=== PATIENT | female | born 1950 | race Caucasian/White ===

== ENCOUNTER 2016-07-30 09:30 | Emergency (ER) | payer BC ==
--- NOTE | 2016-07-30 10:40 | UC ---
Lower Extremity/Ankle HPI - HPI Summary HPI Summary: WENT TO SEE [employer] 2 DAYS AGO TO DISCUSS ELEVATED RHEUMATOID FACTOR FOUND BY PCP. ADVISED SHE DOES NOT HAVE RA, BUT DOES HAVE OA. SHORTLY AFTER HER APPT SHE NOTICE SOME BURNING PAIN BACK OF RIGHT UPPER LEG. DENIES ANY INJURY OR OVERLY STRENUOUS ACTIVITY. DID SOME GARDENING A COUPLE OF DAYS PRIOR. NO NUMBNESS OR TINGLING. ALSO HAS SOME DIFFUSE LOWER BACK PAIN. NO LOSS OF BOWEL/ BLADDER CONTROL. NO SADDLE ANESTHESIA. - History of Current Complaint Chief Complaint: UCBackPain Stated Complaint: LEG AND BACK PAIN Time Seen by Provider: 07/30/16 10:16 Hx Obtained From: Patient Hx Last Menstrual Period: post menapause Onset/Duration: Gradual Onset, Lasting Days, Still Present Severity Initially: Moderate Severity Currently: Moderate Pain Intensity: 4 Pain Scale Used: 0-10 Numeric Aggravating Factor(s): Standing, Ambulation Alleviating Factor(s): Rest Able to Bear Weight: Yes - Allergies/Home Medications Allergies/Adverse Reactions: Allergies Allergy/AdvReac Type Severity Reaction Status Date / Time Bee Venom Allergy Difficulty Verified 12/25/15 11:45 Breathing PMH/Surg Hx/FS Hx/Imm Hx Previously Healthy: Yes Endocrine History Of: Denies: Diabetes, Thyroid Disease Cardiovascular History Of: Denies: Cardiac Disorders, Hypertension, Pacemaker/ICD Respiratory History Of: Denies: COPD, Asthma GI/ History Of: Denies: Ulcer - Surgical History Surgical History: Yes Surgery Procedure, Year, and Place: appy,choley, cysts from ovary, tubal LIGATION, carpal tunnel, cysts from bilat breasts. CHE CARPAL TUNNEL - Family History Known Family History: Positive: Cardiac Disease - father, Diabetes, Other - cancer Negative: Blood Disorder - Social History Alcohol Use: Rare Alcohol Amount: 2 Substance Use Type: None Smoking Status (MU): Former Smoker - Immunization History Most Recent Influenza Vaccination: utd Most Recent Tetanus Shot: utd Most Recent Pneumonia Vaccination: none Review of Systems Constitutional: Negative Skin: Negative Respiratory: Negative Cardiovascular: Negative Gastrointestinal: Negative Musculoskeletal: Myalgia All Other Systems Reviewed And Are Negative: Yes Physical Exam Triage Information Reviewed: Yes Appearance: Well-Appearing, No Pain Distress, Well-Nourished Vital Signs: Initial Vital Signs Temp 98.2 F 07/30/16 09:39 Pulse 77 07/30/16 09:39 Resp 16 07/30/16 09:39 BP 145/78 07/30/16 09:39 Pulse Ox 98 07/30/16 09:39 Vital Signs Reviewed: Yes Eyes: Positive: Conjunctiva Clear ENT: Positive: Hearing grossly normal Neck: Positive: Supple Respiratory: Positive: No respiratory distress, No accessory muscle use Cardiovascular: Positive: Pulses Normal Abdomen Description: Positive: Soft Musculoskeletal: Positive: ROM Intact, No Edema, Other: - NO CALF TENDERNESS. NEG HOMANS. TTP POSTERIORLY RIGHT PROXIMAL LOWER EXTREMITY. NO CORDS PALPATED. NEG STRAIGHT LEG RAISE Neurological: Positive: Alert Psychological: Positive: Age Appropriate Behavior Skin: Negative: rashes Diagnostics - Radiology RLE US Xray Interpretation: No Acute Changes Radiology Interpretation Completed By: Radiologist No standard instances Xray Interpretation: Positive (See Comments) - MILD SCOLIOSIS. DEGENERATIVE DISC DISEASE AND OSTEOARTHRITIS Radiology Interpretation Completed By: Radiologist Lower Extremity Course/Dx - Course Course Of Treatment: PT DECLINES ANY PRESCRIPTION MEDS. PT REFERRAL PROVIDED. FOLLOW-UP PCP. - Differential Dx/Diagnosis Provider Diagnoses: 1. DDD/OA LUMBAR SPINE. 2. RIGHT LEG PAIN, NOS Discharge - Discharge Plan Condition: Stable Disposition: HOME Patient Education Materials: Osteoarthritis (ED), Degenerative Disc Disease (ED ), Leg Pain (ED) Referrals: Leila Dexter MD [Primary Care Provider] - 1 Week Additional Instructions: ULTRASOUND UNREMARKABLE. OSTEOARTHRITIS AND DEGENERATIVE DISC DISEASE SEEN ON LUMBAR SPINE XRAY. TAKE OTC NSAIDS NEEDED FOR DISCOMFORT. PHYSICAL THERAPY REFERRAL PROVIDED. FOLLOW-UP WITH DR. DEXTER. YOU MAY BENEFIT FROM AN MRI TO FURTHER EVALUATE YOUR BACK PATHOLOGY. GO TO THE ER WITHOUT FAIL IF YOU DEVELOP WORSENING PAIN, NUMBNESS OR INABILITY TO CONTROL BOWEL OR BLADDER FUNCTION. [facility] [address] [place] [id number] Leg pain, non-specific: We did not find a specific cause for your leg pain. But there's no sign of a serious problem at this time. Often the cause of the pain becomes obvious with time, or the pain simply goes away. The most common causes of unexplained leg pain are: Muscle irritation. Muscle fatigue, overuse, pressure on the muscle from sitting or lying in one position, or immune reaction to muscle tissue can cause pain. Cholesterol-lowering drugs (statins) can inflame muscles. Dehydration or mineral deficits: Low levels of potassium, salt, calcium, or magnesium can cause cramps or leg muscle pain. Diuretics (water pills) can cause this. Subtle injury. Strains or bruises that were so minor they weren't noticed can cause pain a day or two later. A "stress fracture" of a leg bone can be caused by overuse. "Ruffin splints" is pain in the front of the lower leg caused by overuse or hard running. Nerve pain. Leg pain can be caused by disc disease in the back (sciatica or "pinched nerve") or by damage to nerves by diabetes, alcohol abuse, smoking, or vitamin deficiency. A bruise or pressure on a nerve can cause pain. Tendonitis. Inflammation of a tendon can cause leg pain. Sometimes it's not obvious which tendon is responsible. Varicose veins and post-phlebitic syndrome. Abnormal veins sometimes cause widespread leg aching, particularly after being up on your feet all day. Arthritis. Sometimes the pain of an inflamed joint is felt through a wide area. Restless legs. This is an uncomfortable tightness that builds in the legs, making you want to move them. Sometimes it's caused by medication. Blood clots. We found no sign of blood clots during your evaluation today. Clots in tiny veins may cause pain but be non-detectable. Vascular disease. Narrowed arteries can make your muscles run short of oxygen, causing pain with walking. Other serious causes but more rare causes of leg pain include infection, tumors, and bone degeneration. Rest as much as possible. Elevate your leg while resting. Gently stretch your leg muscles four times a day. Use [id number] pain medicine like acetaminophen or ibuprofen. Gentle compression like support hose or elastic bandages might help. Warm up your leg muscles before physical activity. Carefully control any underlying health problems such as diabetes, high blood pressure, heart failure, gout, or arthritis. Eliminate alcohol and tobacco. See the doctor if you have significant changes, such as swelling, redness, fever, increasing pain, numbness, or discoloration.
--- NOTE | 2016-07-30 11:18 | RAD ---
HISTORY: Right posterior thigh pain and swelling TECHNIQUE: Multiple transverse and longitudinal ultrasound images were obtained of the veins of the right lower extremity using grayscale, color Doppler, and spectral Doppler imaging with and without compression and with augmentation. FINDINGS: VEINS: The common femoral vein, deep femoral vein, femoral vein and popliteal vein are compressible throughout their course, with normal flow on color Doppler imaging and normal response to augmentation on spectral Doppler imaging. SOFT TISSUES: Grossly normal. No large popliteal fossa cyst was identified. IMPRESSION: No sonographic evidence of deep vein thrombosis.
[2016-07-30 11:28] VITALS: BP 142/84
--- NOTE | 2016-07-30 11:30 | RAD ---
HISTORY: Low back pain COMPARISONS: June 01, 2012 VIEWS: 3 , Frontal, lateral, and coned-down lateral sacral views of the lumbar spine FINDINGS: ALIGNMENT: There is a mild levoscoliotic curvature of the spine VERTEBRAL BODIES: There is diffuse osteopenia. There is anterolateral marginal osteophyte formation. The vertebral body heights are preserved. JOINTS: There is facet hypertrophy change along the lower lumbar spine INTERVERTEBRAL DISCS: There is diffuse loss of intervertebral disc height. SOFT TISSUE: Unremarkable. OTHER: The pelvis is unremarkable. The lung bases are clear. IMPRESSION: MILD SCOLIOSIS. DEGENERATIVE DISC DISEASE AND OSTEOARTHRITIS
== END 2016-07-30 11:59 | disposition home or self-care (01) ==
LOC: UCEAST 09:30
DX: M51.36 Other intervertebral disc degeneration, lumbar region (principal); M79.604 Pain in right leg; Z91.030 Bee allergy status; Z87.891 Personal history of nicotine dependence
CPT/HCPCS: 72100; 99211; G0463